=== PATIENT | female | born 1995 | race Hispanic/Latino ===

== ENCOUNTER → 2017-10-29 | Day surgery (SDC) | payer OTHER ==
[~2017-10-29] VITALS: Ht 152.4 cm; Wt 88.5 kg
[~2017-10-29] MED LIST: CITRANATAL HAR1 EACH PO; MACROBID 100 M100 MG PO; PROAIR HFA8.5 GM INH; ZOFRAN ODT4 M1 SL
--- NOTE | 2017-11-01 11:23 | Operative Report ---
Operative/Inv Procedure Report Surgery Date: 10/29/17 Name of Procedure: Incision drainage and Excision of right axillary hidradenitis, with layered closure Pre-Operative Diagnosis: Axillary hidradenitis Post-Operative Diagnosis: Same Estimated Blood Loss: scant Surgeon/Dye House Worker: Nancy GRIFFIN,Venkata Diaz Anesthesia: general endotracheal tube Operative/Procedure Note Note: The patient was positioned supine with her right arm abducted this was prepped and draped in usual sterile fashion medial in the axilla near the pectoralis border was a fluctuant nonerythematous 3-4 cm area he injected local anesthetic and aimed an incision following the skin lines, N ellipse of skin was planned and then made with a 15 blade was some fluid initially liberated the subcutaneous cavity was lined with a layer of soft granulation tissue, very friable, we cut back some skin to find thicker dermis to hold sutures, we excised some of the thickened chronic we inflamed fat and scar then closed in layers using interrupted 3-0 Vicryl sutures subcutaneous dermally and a running 4-0 nylon for the skin itself EBL minimal lap and sponge counts correct wound expectancy clean IV fluids crystalloid complications none patient tolerated the procedure well was extubated and returned to recovery room in satisfactory condition.
== END ==
LOC: STS 00:51
DX: L73.2 Hidradenitis suppurativa (principal); J45.909 Unspecified asthma, uncomplicated
CPT/HCPCS: 81025; J0131; J0690; J1100; J2250; J2405; J3490